=== PATIENT | male | born 1990 | race Caucasian/White ===

== ENCOUNTER 2022-05-27 05:51 | Inpatient (IN) ==
--- NOTE | 2022-05-24 15:02 | Anesthesiology Consultation ---
Date of Service May 24, 2022 Assessment & Plan (1) Encounter for pre-operative examination: Plan - to anesthesiologist discretion if additional testing is needed DOS. - COVID screening: Per nursery rn on 05/24/2022: Travel screen negative, no known COVID-19 positive contacts or current COVID-19 related symptoms in past 2 weeks. To surgeon's discretion if preop COVID testing is needed. Chart Review Chart Review: Acceptable Risk for Surgery and Patient NOT seen in Pre Admission Testing History Surgery Operation Date: 05/27/22 07:30 Proposed Procedures p Left Below Knee Amputation - David Cisneros DO Height/Weight Height: 5 ft 10 in Weight: 97.522 kg Allergies Allergy/AdvReac Type Severity Reaction Status Date / Time morphine Allergy Unknown Unknown Verified 05/24/22 10:12 Medications Home Medications Medication Instructions Recorded Confirmed Last Taken ertapenem 1 gram solution for 1 g IV QPM 05/24/22 05/24/22 Unknown injection Past Medical History Medical History (Updated 05/24/22 @ 15:01 by Nicki Santiago PA-C) GERD (gastroesophageal reflux disease) MRSA (methicillin resistant staph aureus) culture positive left foot wound- treated-2013 Neuropathy Osteomyelitis left foot PICC (peripherally inserted central catheter) in place 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 Past Family History Family History (Updated 05/24/22 @ 10:21 by Ingrid Reaves RN) Other No family history of adverse response to anesthesia Past Surgical History Surgical History History of lumbar surgery multiple lumbar surgeries since childhood Hx of amputation multiple toes left foot Social History Smoking Status: Current every day smoker tobacco type: cigarettes Smoking cigarettes per day: 10 per day- advised Do You Dip or Chew Tobacco: Yes (advised) Hx Alcohol Use: Yes alcohol intake frequency: a few times a month Hx Substance Use: Yes (smokes marijuana qod- advised) substance use type: marijuana
--- NOTE | 2022-05-26 18:23 | History & Physical Report ---
Date of Service May 26, 2022 Assessment & Plan (1) Osteomyelitis of left foot: Plan: Patient has failed all previous surgical and nonsurgical means of treatment for a period of approximately 10 years therefore will schedule surgery for left below-knee amputation. General with regional anesthesia in supine position. Inpatient admission for postoperative care for period of 2 to 3 days. VTE prophylaxis postop. (2) Abscess of left foot: Plan: Please see above plan of care. (3) Neuropathy involving both lower extremities: History of Present Illness Chief Complaint: Left foot chronic osteomyelitis initial onset approximately 10 years prior. Patient had previous transmetatarsal amputation performed by Lilliana Messer D.P.M. and has had multiple attempts of IV antibiotic treatment via PICC line. Patient had attempted skin grafting with failure due to abscess and drainage. Patient continues to use tobacco despite previous admonition. He has draining wounds on the distal aspect of his residual left foot and a actively draining sinus on the lateral fifth metatarsal base with involvement of the cuboid as confirmed with radiograph and MRI. It is both clinically indicated and the patient requested to have a left below-knee amputation due to multiple treatment failures over approximately 10 years. Primary Care Provider: NO PCP Allergies Allergy/AdvReac Type Severity Reaction Status Date / Time morphine Allergy Unknown Unknown Verified 05/24/22 10:12 Home Medications Medication Instructions Recorded Confirmed Type ertapenem 1 gram solution for 1 g IV QPM 05/24/22 05/24/22 History injection Past Med/Surg History Medical History (Updated 05/26/22 @ 18:21 by David Cisneros DO) GERD (gastroesophageal reflux disease) MRSA (methicillin resistant staph aureus) culture positive left foot wound- treated-2013 Neuropathy Osteomyelitis left foot PICC (peripherally inserted central catheter) in place 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 Spina bifida Surgical History History of lumbar surgery multiple lumbar surgeries since childhood Hx of amputation multiple toes left foot Family History (Updated 05/24/22 @ 10:21 by Ingrid Reaves RN) Other No family history of adverse response to anesthesia Social History Smoking Status: Current every day smoker Cigarettes Per Day: 10 per day- advised; Second Hand Exposure: No; Do You Dip or Chew Tobacco: Yes (advised); Tobacco Cessation Education Requested by Patient: No Hx Alcohol Use: Yes Hx Substance Use: Yes (smokes marijuana qod- advised) Preferred Language: Kittitian Communication Ability: Effective Cab Starter Required: No Beliefs That Will Affect Care: None Current Living Situation: Family Other Information That Helps Us Care for You: No Feels Safe at Home: Yes Safety Concerns: Feels Safe At This Time Assistive Devices: Crutches and Scooter/Electric Scooter Assistive Devices Comment: knee scooter Review of Systems Musculoskeletal: Complex history as noted above. Continued draining sinuses distal foot and lateral left foot with active osteomyelitis fifth metatarsal and cuboid. Physical Exam Constitutional: WD/WN, vitals as above Eyes: PERRL, conjunctivae normal, anicteric sclerae ENMT: external ear and nose normal, oropharynx normal Neck: trachea midline, no thyromegaly Respiratory: normal respiratory effort, lungs clear to auscultation Cardiovascular: RRR, no murmur, no edema Chest (Breasts): Additional Comments: Deferred Gastrointestinal (Abdomen): normal bowel sounds, soft, nontender, no hepatosplenomegaly Musculoskeletal: Left foot status post prior transmetatarsal amputation with distal skin graft with abscess and failure. Draining sinus tract from distal TMA to deep distal midfoot. Left-sided draining sinus with communication to bone of the fifth metatarsal base and the cuboid with slight foul odor. Pulses palpable. Sensation diminished due to chronic spina bifida. Range of motion intact right. Strength 4/5 all range of motion left ankle compared to right. Skin: no rashes, warm and dry Neurologic: Cranial nerves II through XII grossly intact. ANO x3. Speech is clear and fluent. Chronic neuropathic changes bilateral lower extremities due to history of spina bifida. Psychiatric: A+Ox3, euthymic affect Genitourinary: Deferred. Lymphatic: no cervical or axillary lymphadenopathy Results & Data Results & Data ([facility]) Diagnostic Findings Chronic osteomyelitis per radiographs left foot status post TMA. MRI did notes previous partial resection fifth metatarsal base with osteomyelitis throughout residual fifth metatarsal and high signal consistent with osteomyelitis cuboid. Draining sinuses distal left foot and lateral midfoot. Code Status & VTE Plan VTE Prophylaxis Plan VTE Prophylaxis will be ordered: Yes
[2022-05-27] MEDS ORDERED: LR 15ML/HR IV SCH (06:00)
[2022-05-27] MEDS ORDERED: PROPOFOL IV EMULSION 10 MG/ML 20 ML VIAL IV ONE (06:49)
[2022-05-27] MEDS ORDERED: MIDAZOLAM HCL 1 MG/ML 2ML VIAL ONE (06:49)
[2022-05-27] MEDS ORDERED: fentaNYL citrate 100 MCG/2 ML VIAL ONE (06:49)
[2022-05-27] MEDS ORDERED: ROPIVACAINE 0.5% 5 MG/ML 30 ML VIAL ONE (06:53)
[2022-05-27] MEDS ORDERED: ePHEDrine sulfate 50 MG/ML AMP IV PRN ×2 (07:09→10:06)
[2022-05-27] MEDS ORDERED: ATROPINE SULFATE 0.1 MG/ML 10ML SYR IV PRN ×2 (07:09→10:06)
[2022-05-27] MEDS ORDERED: fentaNYL citrate 100 MCG/2 ML VIAL IV PRN (07:09)
[2022-05-27] MEDS ORDERED: HYDROmorphone INJ 2 MG/ML SYR/VIAL IV PRN (07:09)
--- NOTE | 2022-05-27 07:18 | History & Physical Bridge Note ---
Date of Service May 27, 2022 History & Physical Bridge Note I have examined the patient, reviewed the History & Physical and in the interval since the performance of the History & Physical I have noted the following changes of clinical significance: no changes noted
[2022-05-27] MEDS ORDERED: BUPIVACAINE 0.5 % 5 MG/1 ML MPF 30ML VIAL ONE (07:19)
[2022-05-27] MEDS ORDERED: ceFAZolin 2,000 MG/15 ML IV PUSH IV ONE (07:23)
[2022-05-27] MEDS ORDERED: ceFAZolin 2000MG 2,000 MG/15 ML SYR IV ONE (07:30)
--- NOTE | 2022-05-27 10:03 | Post Operative Brief Note ---
Immediate Post Op Note v1 Date of Surgery May 27, 2022 Pre & Post Diagnosis Operation Date: 05/27/22 07:30 Pre-Op Diagnosis: Osteomyelitis of left foot fifth metatarsal, osteomyelitis left cuboid, abscess left foot, chronic draining sinuses x2 left foot, spina bifida with neuropathy Post-Op Diagnosis: Osteomyelitis of left foot fifth metatarsal, osteomyelitis left cuboid, abscess left foot, chronic draining sinuses x2 left foot, spina bifida with neuropathy I identified the patient and participated in the time-out.: Yes Procedure Operation Date: 05/27/22 07:30 Actual Procedures p Left Below Knee Amputation(Left) - David Cisneros DO Surgeon David Cisneros DO Manager Software Development None Estimated Blood Loss 20 Findings Consistent with Post-Op Diagnosis Specimens Left foot and ankle post below-knee amputation Drains Hemovac Drain Anesthesia Type General Regional Complications none Disposition Accompanied Patient To Recovery: No
--- NOTE | 2022-05-27 10:33 | Anesthesiology Progress Note ---
Date of Service May 27, 2022 Anesthesia Post Procedure Vital Signs Vital Signs: Temp Pulse Pulse Resp BP BP Pulse Ox 05/27/22 10:25 68 11 L 119/84 97 05/27/22 10:15 77 21 134/80 99 05/27/22 10:05 75 13 134/92 98 05/27/22 09:56 36.0 C L 90 18 150/96 H 94 05/27/22 06:19 36.6 C 75 20 143/96 H 97 O2 Del Method O2 Flow Rate 05/27/22 10:25 Nasal Cannula 2 05/27/22 10:15 Nasal Cannula 2 05/27/22 10:05 Nasal Cannula 3 05/27/22 09:56 Room Air 05/27/22 06:19 Room Air Pain Intensity Left Foot: Pain Intensity: 5 Left Leg: Pain Intensity: 4 Transfer of Care Handoff Completed per policy Notes Mental Status: alert / awake / arousable and participated in evaluation Patient Amnestic to Procedure: Yes Nausea / Vomiting: adequately controlled Pain: adequately controlled Airway Patency, RR, SpO2: stable & adequate BP & HR: stable & adequate Hydration State: stable & adequate Anesthetic Complications: no major complications apparent and Pt Satisfied with anesthetic care
[2022-05-27] MEDS ORDERED: MAGNESIUM HYDROXIDE SUSP 30 ML UDC PO PRN (11:22)
[2022-05-27] MEDS ORDERED: bisacodyL 10 MG SUPP PR PRN (11:22)
[2022-05-27] MEDS ORDERED: METOCLOPRAMIDE HCL INJ 5 MG/ML 2 ML VIAL IV PRN (11:22)
[2022-05-27] MEDS ORDERED: SODIUM CHLORIDE 0.9% 1000ML 1,000 ML IV SCH (11:22)
[2022-05-27] MEDS ORDERED: NALOXONE HCL 0.4 MG/1 ML VIAL/CARP IV PRN (11:22)
[2022-05-27] MEDS: KETOROLAC 30 MG/ML VIAL IV SCH ×2 (13:12→17:26)
[2022-05-27] MEDS: oxyCODONE HCL IR 5 MG TAB (IMMEDIATE RELEASE) PO PRN ×2 (14:21→20:22)
[2022-05-27] MEDS: ONDANSETRON INJ 2 MG/ML 2 ML VIAL IV PRN ×2 (14:21→20:22)
--- NOTE | 2022-05-27 19:02 | Operative Report (OR) ---
DATE OF PROCEDURE: 05/27/2022. PREOPERATIVE DIAGNOSES: 1. Left foot chronic osteomyelitis, fifth metatarsal. 2. Osteomyelitis of the cuboid, chronic, left foot. 3. Abscess of the foot. 4. Draining sinus x2, left foot. 5. Spina bifida with neuropathy. POSTOPERATIVE DIAGNOSES: 1. Left foot chronic osteomyelitis, fifth metatarsal. 2. Osteomyelitis of the cuboid, chronic, left foot. 3. Abscess of the foot. 4. Draining sinus x2, left foot. 5. Spina bifida with neuropathy. PROCEDURE: Left below-knee amputation. SURGEON: David Cisneros DO. HOSE SUSPENDER CUTTER: None. ANESTHESIA: General, regional. SPECIMENS: Residual limb post-amputation left lower extremity. DRAINS: Hemovac x2. COMPLICATIONS: None. BLOOD LOSS: 20 mL. PERTINENT HISTORY: This is a 31-year-old gentleman who has struggled with spina bifida with chronic neuropathy in bilateral lower extremities with multiple surgeries resulting in an ulceration of his left foot, which progressed over a period of 10 years with multiple surgeries, multiple attempts at IV antibiotics with failure. The patient had a transmetatarsal amputation on the left foot, which then resulted in continued chronic draining sinuses with abscess formation and osteomyelitis of the fifth metatarsal, osteomyelitis of the cuboid. Had consistently failed IV antibiotic therapy on approximately 4 to 6 other occasions. The patient had also most recently failed skin grafting attempts with re-abscess of the foot x2. The patient then opted for left below-knee amputation. All potential risks, benefits, complications, alternatives, rehab potential for incomplete relief of symptoms, need for further surgery, DVT, PE, , persistent pain, swelling, scarring, weakness, neurovascular injury, wound complications, need for further surgery or revision of the below-knee amputation were discussed with the patient. The patient decided to proceed with the procedure as indicated. DESCRIPTION OF PROCEDURE: The patient was taken to the operative suite and placed supine on the Operating Room table. After we reviewed the consent and identification of proper operative site was performed, appropriate anesthesia care was administered and the left lower extremity had tourniquet placed high on the thigh over cast padding. The left lower extremity was then sterilely prepped and draped in the usual fashion, elevated, and partially exsanguinated with an Esmarch bandage. Tourniquet inflated to 350 mmHg. Next after appropriate level of resection of the bone was determined approximately 10 cm distal to the tibial tubercle and skin incision level was determined approximately 1 to 1.5 cm distal to the level of bone resection of the tibia, the 10 blade scalpel was then used to make a transverse incision anteriorly traversing the entirety of the lower extremity and then a long posterior flap was incised extending distally from the mid lateral line. Next the electrocautery was used to achieve hemostasis and then anterior compartments were incised at the level of the skin resection and hemostat was placed posterior to the tibia and appropriate retractors were placed in the wound. The skin was retracted proximally, approximately 1 to 1.5 cm. Transverse cut of the tibia was performed with a sagittal saw and then oblique double bevel cut was made anteriorly and then sagittal saw was used to cut the fibula and plane down the tibia to appropriate smoothed edges. A rasp was then was used to complete the process of the bony resection with smoothing of the tibia and fibula. Next, the posterior compartment was carefully dissected with Metzenbaum scissors to locate the major neurovascular bundles. These were tied with 2-0 silk ties which were doubled, tied and cut, and then distally they were singularly tied and cut followed by transection of the neurovascular bundles with electrocautery. Tibial nerve and the sural nerve were then injected with 0.5% Marcaine approximately 20 cc in total. Next careful bevel cut was made in the soft tissue the posterior compartment including the gastrocsoleus to the point of the posterior aspect of the flap. The amputated lower extremity was then passed off as specimen. Next, the wound was irrigated with sterile normal saline and further beveling of the soft tissues in the posterior compartment was performed until a stable flap closure was to be performed. Dog ears and soft tissue were excised using 10 blade scalpel and then the gastrocsoleus fascia was then used to trial the closure with Allis clamp. It closed well without any significant soft tissue tension. After final irrigation with copious amounts of sterile normal saline, minimal bone wax was placed in the bony cut surface of the tibia and fibula. The 10 Urdu single Hemovac drain was then placed in the wound exiting anteriorly and proximally. The gastrocsoleus fascia was then closed to the anterior fascia with interrupted #1 Vicryl sutures. After the deep soft tissues and fascia were closed with abundant muscular covering of the tibia, the dermis was closed using buried 2-0 Vicryl sutures. The skin was then closed using 2-0 nylon sutures and the wound was injected with 0.5% Marcaine plain. A sterile compressive dressing was applied consisting of Xeroform gauze, sterile 4 x 4's, cast padding and overwrapped with an Derrick wrap. Tourniquet was released. The patient was awakened and taken to recovery in stable condition. Job ID: [id number] [facility]
[2022-05-27] MEDS: DOCUSATE SODIUM 100 MG CAP PO SCH (20:22)
[2022-05-27] MEDS: GABAPENTIN 100 MG CAP PO SCH (20:22)
[2022-05-27] MEDS: SENNA 8.6 MG TAB PO SCH (20:22)
[2022-05-27] MEDS ORDERED: ERTAPENEM 285 MG/ML 1GM VIAL **IM USE IM SCH (21:00)
[2022-05-27] MEDS: ERTAPENEM SODIUM 1,000 MG in SYRINGE 0 ML IV SCH (21:48)
[2022-05-28] MEDS: KETOROLAC 30 MG/ML VIAL IV SCH ×2 (00:17→05:39)
[2022-05-28 06:17] LABS: Hematocrit (blood only) 39.3 % (42.0-52.0); Hemoglobin 13.3 g/dl (14.0-18.0); Mean Corpuscular Hemoglobin 28.5 pg (25.0-34.0); Mean Corpuscular Hgb Conc 33.8 g/dL (32.0-36.0); Mean Corpuscular Volume 84.3 fL (80.0-100.0); Mean Platelet Volume 9.7 fL (9.4-12.4); Platelet Count 203 K/uL (130-400); RDW Coefficient of Variation 13.2 % (11.5-14.5); RDW Standard Deviation 40.5 fL (36.4-46.3); Red Blood Count 4.66 M/uL (4.70-6.10)
[2022-05-28 06:37] LABS: BUN Creatinine Ratio 14.6 (10-20); Calcium 8.7 mg/dl (8.5-10.1); Creatinine Clr Calc Pharmacy 132.8 ml/min; Est GFR (African American) 121.6 ml/min; Est GFR (Non-African American) 104.9 ml/min; Potassium 3.9 mmol/L (3.5-5.1)
[2022-05-28] MEDS: oxyCODONE HCL IR 5 MG TAB (IMMEDIATE RELEASE) PO PRN ×4 (07:38→22:05)
[2022-05-28] MEDS: MULTIVITAMIN TAB PO SCH (08:42)
[2022-05-28] MEDS: GABAPENTIN 100 MG CAP PO SCH ×3 (08:42→21:20)
[2022-05-28] MEDS: DOCUSATE SODIUM 100 MG CAP PO SCH ×2 (08:42→21:19)
--- NOTE | 2022-05-28 14:43 | Orthopedic Progress Note ---
Date of Service May 28, 2022 Assessment & Plan (1) Osteomyelitis of left foot: Plan: Continue pain medication as necessary. Nonweightbearing residual left lower extremity. We will perform dressing change and removal of drains tomorrow. Appreciate social service input regarding postop disposition. Continue ASA 81 mg VTE prophylaxis postop. (2) Abscess of left foot: Plan: Please see above plan of care. (3) Neuropathy involving both lower extremities: Admission and Anticipated Discharge Date Admission Date: May 27, 2022 Subjective Patient with moderately well-controlled pain. Continues to ice and elevate left lower extremity as directed. Has been ambulating with a walker in his room without difficulty. Physical Exam Constitutional: WD/WN, vitals as above Eyes: PERRL, conjunctivae normal, anicteric sclerae ENMT: external ear and nose normal, oropharynx normal Neck: trachea midline, no thyromegaly Respiratory: normal respiratory effort, lungs clear to auscultation Cardiovascular: RRR, no murmur, no edema Gastrointestinal (Abdomen): normal bowel sounds, soft, nontender, no hepatosplenomegaly Musculoskeletal: Examination of the left lower extremity demonstrates well padded left lower extremity dressing with drain in place. No active discharge. No strikethrough of the dressing. He has appropriate range of motion of the left knee. No reported phantom limb pain left lower extremity with palpation of the distal BKA stump. Skin: no rashes, warm and dry Psychiatric: A+Ox3, euthymic affect Lymphatic: no cervical or axillary lymphadenopathy Results & Data ([facility]) Vital Signs (Past 12 Hours) Vital Signs Temp Pulse Pulse Resp BP Pulse Ox O2 Del Method 05/28/22 12:00 36.8 C 64 16 120/70 98 Room Air 05/28/22 11:08 Room Air 05/28/22 07:35 36.7 C 65 14 120/70 95 Room Air 05/28/22 03:21 36.8 C 71 18 113/70 97 Room Air
[2022-05-28] MEDS: ASPIRIN 81 MG ECTAB PO SCH (15:56)
[2022-05-28] MEDS: SENNA 8.6 MG TAB PO SCH (21:20)
[2022-05-28] MEDS: ERTAPENEM SODIUM 1,000 MG in SYRINGE 0 ML IV SCH (21:32)
[2022-05-29] MEDS: oxyCODONE HCL IR 5 MG TAB (IMMEDIATE RELEASE) PO PRN ×3 (02:08→11:06)
[2022-05-29] MEDS: DOCUSATE SODIUM 100 MG CAP PO SCH (08:46)
[2022-05-29] MEDS: GABAPENTIN 100 MG CAP PO SCH (08:46)
[2022-05-29] MEDS: ASPIRIN 81 MG ECTAB PO SCH (08:46)
[2022-05-29] MEDS: MULTIVITAMIN TAB PO SCH (08:47)
--- NOTE | 2022-05-29 11:50 | Orthopedic Progress Note ---
Date of Service May 29, 2022 Assessment & Plan (1) Osteomyelitis of left foot: Plan: Continue pain medication as necessary. Nonweightbearing residual left lower extremity. Sterile dry dressing changed performed. Appreciate social service input regarding postop disposition and discharge today. Continue ASA 81 mg VTE prophylaxis postop x2 weeks. Continue ibuprofen 600 mg 4 times daily and Tylenol 1000 mg 3 times daily with food as primary means of pharmacologic pain control. Narcotic home pack and prescription for Percocet provided to patient. Continue Invanz as per Dr. Bryson however would recommend discontinuing IV antibiotics within the next week if no objections from Dr. Bryson Follow-up with Dr. Cisneros in clinic in approximately 2 to 3 weeks. (2) Abscess of left foot: Plan: Please see above plan of care. (3) Neuropathy involving both lower extremities: Admission and Anticipated Discharge Date Admission Date: May 27, 2022 Subjective Patient with improving, well-controlled pain. Continues to ice and elevate left lower extremity as directed. Has been ambulating with a walker in his room without difficulty. Eager to discharge home today. Discharge planning/social service input appreciated. Physical Exam Constitutional: WD/WN, vitals as above Eyes: PERRL, conjunctivae normal, anicteric sclerae ENMT: external ear and nose normal, oropharynx normal Neck: trachea midline, no thyromegaly Respiratory: normal respiratory effort, lungs clear to auscultation Cardiovascular: RRR, no murmur, no edema Gastrointestinal (Abdomen): normal bowel sounds, soft, nontender, no hepatos plenomegaly Musculoskeletal: Left lower extremity dressing removed. Drains removed. No discharge from the drain sites. The residual limb is pink, warm and dry. Staple line intact. No evidence of maceration, fluctuance or erythema. Range of motion left knee acceptable. Tenderness at the incision site as anticipated. New sterile dry dressing applied. Skin: no rashes, warm and dry Psychiatric: A+Ox3, euthymic affect Lymphatic: no cervical or axillary lymphadenopathy Results & Data ([facility]) Vital Signs (Past 12 Hours) Vital Signs Temp Pulse Resp BP Pulse Ox O2 Del Method 05/29/22 08:00 36.6 C 74 14 122/80 93 Room Air
[2022-05-29] MEDS ORDERED: PERCOCET 5/325MG HOMEPACK PO ONE (12:18)
== END 2022-05-29 14:08 | disposition home health service (06) | DRG 475 ==
LOC: ASU 05:51 → 3E 10:31